=== PATIENT | female | born 1970 | race Two or more races ===

== ENCOUNTER 2016-10-04 20:32 | Emergency (ER) | payer SELFPAY ==
[~2016-10-04] VITALS: Ht 165.1 cm; Wt 49.9 kg
[2016-10-04] MEDS ORDERED: ACETAMINOPHEN 325 MG TAB PO ONE ×2 (20:48→21:00)
[2016-10-04] MEDS ORDERED: cefTRIAXone SOD 1,000 MG VL ONE (22:04)
[2016-10-04] MEDS ORDERED: NEOMYCIN-BACITRACIN-POLYM 15GM TOP OINT TOP ONE (22:04)
[2016-10-04 22:15] VITALS: BP 116/83
== END 2016-10-04 22:32 | disposition home or self-care (01) ==
LOC: ER 20:35
DX: S51.831A Puncture wound without foreign body of right forearm, initial encounter (principal); W54.0XXA Bitten by dog, initial encounter; Y93.89 Activity, other specified; Y92.89 Other specified places as the place of occurrence of the external cause; Y99.8 Other external cause status
CPT/HCPCS: 73070; 73090; 99284; J0696